=== PATIENT | male | born 1945 | race Caucasian/White ===

== ENCOUNTER 2020-04-26 12:13 | Inpatient (IN) ==
[2020-04-26 14:18] LABS: INR 1.3; Prothrombin Time 14.6 Seconds (9.4-12.1)
[2020-04-26 14:25] LABS: Alanine Aminotransferase 33 Units/L (7-52); Alkaline Phosphatase 42 Units/L (34-104); Aspartate Amino Transferase 44 Units/L (13-39); BUN/Creatinine Ratio 29 (6-26); Bilirubin,Direct 0.3 mg/dL (0.0-0.2); Bilirubin,Indirect 0.7 mg/dL (0.0-1.0); Blood Urea Nitrogen 42 mg/dL (8-23); C-Reactive Protein 289 mg/L (Less than 10); Calcium 9.1 mg/dL (8.6-10.3); Carbon Dioxide 25 mEq/L (23-29); Chloride 99 mEq/L (98-107); Glucose 114 mg/dL (70-105); Lactate Dehydrogenase 390 Units/L (140-271); Magnesium 2.4 mg/dL (1.6-2.6); Osmolality,Calculated 295 (280-300); Phosphorous 2.8 mg/dL (2.7-4.5); Potassium 3.1 mEq/L (3.5-5.1); Sodium 137 mEq/L (136-145); Troponin I < 0.03 ng/mL (< 0.04); eGFR For African Americans 58 (> 60); eGFR For Non-African Americans 48 (> 60)
[2020-04-26 14:39] LABS: Ferritin 498 ng/mL (20-250)
[2020-04-26] MEDS ORDERED: Azithromycin 500 MG in 0.9 % Sodium Chloride 250 ML IVPB ONE (14:40)
[2020-04-26] MEDS ORDERED: cefTRIAXone 1,000 MG in Water for inj. (sterile) 10 ML IVP ONE (14:40)
[2020-04-26 15:08] LABS: Hemoglobin 13.8 g/dL (12.9-16.9); Mean Platelet Volume 11.5 fL (9.4-12.4); Red Cell Distribution Width 14.9 % (11.5-14.5)
[2020-04-26 15:10] LABS: Hematocrit 41.7 % (37.5-50.1); Mean Corpuscular HGB Conc 33.1 g/dL (31.6-35.5); Mean Corpuscular Hemoglobin 29.9 pg (28.0-33.3); Mean Corpuscular Volume 90.3 fL (83.0-100.0); Red Blood Count 4.62 M/mcL (4.19-5.50); White Blood Count 10.9 K/mcL (4.3-11.1)
[2020-04-26 15:24] LABS: Adenovirus Not Detected (Not Detect); Coronavirus 229E Not Detected (Not Detect); Coronavirus HKU1 Not Detected (Not Detect); Coronavirus NL63 Not Detected (Not Detect); Coronavirus OC43 Not Detected (Not Detect); Human Metapneumovirus Not Detected (Not Detect); Human Rhinovirus/Enterovirus Not Detected (Not Detect); Influenza A Subtype 2009 H1 Not Detected (Not Detect); SARS-CoV-2 DETECTED (Not Detect)
[2020-04-26] MEDS ORDERED: Dexamethasone 4 MG/ML VIAL IVP STA (15:24)
[2020-04-26] MEDS ORDERED: 0.9 % Sodium Chloride 1,000 ML IVC ONE (15:24)
[2020-04-26 15:25] LABS: Bordetella Pertussis Not Detected (Not Detect); Chlamydophila pneumoniae Not Detected (Not Detect); Influenza B Not Detected (Not Detect); Mycoplasma pneumoniae Not Detected (Not Detect); Parainfluenza Virus 1 Not Detected (Not Detect); Parainfluenza Virus 2 Not Detected (Not Detect); Parainfluenza Virus 3 Not Detected (Not Detect); Parainfluenza Virus 4 Not Detected (Not Detect); Respiratory Syncytial Virus Not Detected (Not Detect)
[2020-04-26] MEDS ORDERED: *HR* Dextrose 50 % in Water (Vial) 50 ML VIAL IVP PRN (15:35)
[2020-04-26] MEDS ORDERED: Naloxone 0.4 MG/ML INJ IVP PRN (15:35)
[2020-04-26] MEDS ORDERED: D5% in Water 1,000 ML IVC PRN (15:35)
[2020-04-26] MEDS ORDERED: Dextrose Gel 15 GM/37.5 ML TUBE PO PRN ×2 (15:35)
[2020-04-26] MEDS ORDERED: Ondansetron 4 MG/2 ML VIAL IVP PRN (15:35)
[2020-04-26 15:38] LABS: Large Platelets Present (Not Present); Lymphocytes # 2.3 K/mcL (0.6-4.6); Monocytes # 1.5 K/mcL (0.0-1.3); Neutrophils # 7.1 K/mcL (1.6-8.9)
[2020-04-26] MEDS ORDERED: Potassium Chloride Elixir 20 MEQ/15 ML UDC PO ONE (16:09)
[2020-04-26] MEDS: *HR* Heparin 5,000 UNIT/ML VIAL SQ SCH (20:43)
[2020-04-27 02:04] LABS: Basophils % 0.2 %; Hemoglobin 12.2 g/dL (12.9-16.9); Immature Granulocytes % 1.4 % (0-4); Immature Platelets 23.4 % (1.1-6.1); Lymphocytes # 0.8 K/mcL (0.6-4.6); Lymphocytes % 8.4 %; Mean Corpuscular HGB Conc 33.9 g/dL (31.6-35.5); Mean Corpuscular Hemoglobin 30.6 pg (28.0-33.3); Mean Corpuscular Volume 90.2 fL (83.0-100.0); Monocytes # 0.8 K/mcL (0.0-1.3); Red Blood Count 3.99 M/mcL (4.19-5.50); Red Cell Distribution Width 14.7 % (11.5-14.5); White Blood Count 9.8 K/mcL (4.3-11.1)
[2020-04-27 02:09] LABS: Platelet Count 56 K/mcL (140-400)
[2020-04-27 02:16] LABS: D-Dimer 1424 ng/mLFEU (0-500); Fibrinogen 740 mg/dL (169-393)
[2020-04-27 02:27] LABS: Alanine Aminotransferase 33 Units/L (7-52); Albumin 3.5 g/dL (3.5-5.7); Albumin/Globulin Ratio 1.1 (1.1-2.2); Alkaline Phosphatase 36 Units/L (34-104); Aspartate Amino Transferase 41 Units/L (13-39); BUN/Creatinine Ratio 38 (6-26); Bilirubin,Total 0.7 mg/dL (0.3-1.0); Blood Urea Nitrogen 44 mg/dL (8-23); Calcium 8.3 mg/dL (8.6-10.3); Carbon Dioxide 21 mEq/L (23-29); Chloride 104 mEq/L (98-107); Globulin 3.2 g/dL (2.4-3.5); Glucose 160 mg/dL (70-105); Magnesium 2.4 mg/dL (1.6-2.6); Osmolality,Calculated 297 (280-300); Phosphorous 3.4 mg/dL (2.7-4.5); Potassium 3.6 mEq/L (3.5-5.1); Sodium 136 mEq/L (136-145); Total Protein 6.7 g/dL (6.4-8.9); eGFR For African Americans > 60 (> 60); eGFR For Non-African Americans > 60 (> 60)
[2020-04-27] MEDS ORDERED: 0.9 % Sodium Chloride 250 ML IV ONE (04:24)
[2020-04-27] MEDS: *HR* Heparin 5,000 UNIT/ML VIAL SQ SCH ×2 (05:20→17:46)
[2020-04-27] MEDS ORDERED: Azithromycin 500 MG in 0.9 % Sodium Chloride 250 ML IVPB SCH (08:00)
[2020-04-27] MEDS ORDERED: cefTRIAXone 2,000 MG in 0.9 % Sodium Chloride Mini Bag 100 ML IVPB SCH (08:00)
[2020-04-27] MEDS: Furosemide 40 MG/4 ML VIAL IVP ONE (08:51)
[2020-04-27] MEDS: Piperacillin/Tazobactam 3.375 GM in 0.9 % Sodium Chloride Mini Bag 100 ML IVPB SCH ×2 (08:51→16:09)
[2020-04-27] MEDS: Dexamethasone Sodium Phos/PF 10 MG/ML VIAL IVP SCH (08:52)
[2020-04-27] MEDS: Cholecalciferol (D-3) 1,000 UNIT (25MCG) TABLET PO SCH (11:22)
[2020-04-27] MEDS: Ascorbic Acid 500 MG TABLET PO SCH (11:22)
[2020-04-27] MEDS: Aspirin Enteric Coated 81 MG Tablet PO SCH (11:22)
[2020-04-27] MEDS: Doxycycline 100 MG in 0.9 % Sodium Chloride Mini Bag 100 ML IVPB SCH (16:10)
[2020-04-27] MEDS ORDERED: Remdesivir 200 MG (Bolus) in 0.9 % Sodium Chloride 250 ML IVPB ONE (17:00)
[2020-04-27] MEDS: Acetaminophen 325 MG TABLET PO PRN (19:51)
[2020-04-27] MEDS ORDERED: 0.9 % Sodium Chloride 250 ML ONE (22:02)
[2020-04-28] MEDS: Piperacillin/Tazobactam 3.375 GM in 0.9 % Sodium Chloride Mini Bag 100 ML IVPB SCH ×4 (00:48→23:31)
[2020-04-28] MEDS: Doxycycline 100 MG in 0.9 % Sodium Chloride Mini Bag 100 ML IVPB SCH ×2 (03:15→15:44)
[2020-04-28] MEDS: *HR* Heparin 5,000 UNIT/ML VIAL SQ SCH ×2 (05:12→17:24)
[2020-04-28] MEDS: Acetaminophen 325 MG TABLET PO PRN ×2 (06:01→20:31)
[2020-04-28 07:12] LABS: Basophils % 0.3 %; Eosinophils % 0.1 %; Hematocrit 34.2 % (37.5-50.1); Hemoglobin 11.5 g/dL (12.9-16.9); Immature Granulocytes % 1.9 % (0-4); Immature Platelets 31.4 % (1.1-6.1); Lymphocytes # 0.6 K/mcL (0.6-4.6); Lymphocytes % 4.3 %; Mean Corpuscular HGB Conc 33.6 g/dL (31.6-35.5); Mean Corpuscular Hemoglobin 29.6 pg (28.0-33.3); Mean Corpuscular Volume 87.9 fL (83.0-100.0); Mean Platelet Volume 12.2 fL (9.4-12.4); Monocytes # 1.2 K/mcL (0.0-1.3); Monocytes % 8.7 %; Red Blood Count 3.89 M/mcL (4.19-5.50); Red Cell Distribution Width 14.6 % (11.5-14.5); Segmented Neutrophils % 84.7 %
[2020-04-28 07:16] LABS: Neutrophils # 11.9 K/mcL (1.6-8.9); Platelet Count 51 K/mcL (140-400)
[2020-04-28 07:30] LABS: Alanine Aminotransferase 43 Units/L (7-52); Albumin 3.4 g/dL (3.5-5.7); Alkaline Phosphatase 38 Units/L (34-104); Aspartate Amino Transferase 42 Units/L (13-39); BUN/Creatinine Ratio 45 (6-26); Bilirubin,Total 0.5 mg/dL (0.3-1.0); Blood Urea Nitrogen 54 mg/dL (8-23); Calcium 8.8 mg/dL (8.6-10.3); Carbon Dioxide 21 mEq/L (23-29); Chloride 105 mEq/L (98-107); Globulin 3.4 g/dL (2.4-3.5); Glucose 189 mg/dL (70-105); Osmolality,Calculated 302 (280-300); Potassium 3.4 mEq/L (3.5-5.1); Sodium 136 mEq/L (136-145); Total Protein 6.8 g/dL (6.4-8.9); eGFR For African Americans > 60 (> 60); eGFR For Non-African Americans 60 (> 60)
[2020-04-28] MEDS: Cholecalciferol (D-3) 1,000 UNIT (25MCG) TABLET PO SCH (08:09)
[2020-04-28] MEDS: Aspirin Enteric Coated 81 MG Tablet PO SCH (08:09)
[2020-04-28 08:10] LABS: INR 1.1; Prothrombin Time 12.9 Seconds (9.4-12.1)
[2020-04-28] MEDS: Dexamethasone Sodium Phos/PF 10 MG/ML VIAL IVP SCH (08:10)
[2020-04-28] MEDS: Ascorbic Acid 500 MG TABLET PO SCH (08:10)
[2020-04-28] MEDS ORDERED: Potassium Chloride Elixir 20 MEQ/15 ML UDC PO ONE (10:38)
[2020-04-28] MEDS ORDERED: Furosemide 40 MG/4 ML VIAL IVP ONE (10:38)
[2020-04-28] MEDS: Remdesivir 100 MG (x 4 Days) in 0.9 % Sodium Chloride 250 ML IVPB SCH (17:22)
[2020-04-28] MEDS ORDERED: Insulin DETEMIR 100 UNIT/ML X5UNITS SQ ONE (20:57)
[2020-04-28] MEDS: Pantoprazole 40 MG VIAL IVP SCH (21:38)
[2020-04-29] MEDS: Doxycycline 100 MG in 0.9 % Sodium Chloride Mini Bag 100 ML IVPB SCH (03:51)
[2020-04-29] MEDS: *HR* Heparin 5,000 UNIT/ML VIAL SQ SCH ×2 (05:07→17:55)
[2020-04-29] MEDS: Pantoprazole 40 MG VIAL IVP SCH (05:08)
[2020-04-29 06:21] LABS: Basophils % 0.3 %; Lymphocytes % 5.5 %; Red Cell Distribution Width 14.8 % (11.5-14.5)
[2020-04-29 06:22] LABS: Hematocrit 36.4 % (37.5-50.1); Hemoglobin 12.3 g/dL (12.9-16.9); Immature Granulocytes % 2.6 % (0-4); Immature Platelets 24.6 % (1.1-6.1); Lymphocytes # 0.6 K/mcL (0.6-4.6); Mean Corpuscular HGB Conc 33.8 g/dL (31.6-35.5); Mean Corpuscular Hemoglobin 29.8 pg (28.0-33.3); Mean Corpuscular Volume 88.1 fL (83.0-100.0); Monocytes # 0.7 K/mcL (0.0-1.3); Monocytes % 6.6 %; Red Blood Count 4.13 M/mcL (4.19-5.50); White Blood Count 11.1 K/mcL (4.3-11.1)
[2020-04-29 06:26] LABS: Neutrophils # 9.4 K/mcL (1.6-8.9)
[2020-04-29 06:31] LABS: Fibrinogen 478 mg/dL (169-393)
[2020-04-29 06:33] LABS: INR 1.2; Prothrombin Time 13.9 Seconds (9.4-12.1)
[2020-04-29 06:40] LABS: Alanine Aminotransferase 44 Units/L (7-52); Albumin 3.3 g/dL (3.5-5.7); Alkaline Phosphatase 39 Units/L (34-104); Aspartate Amino Transferase 33 Units/L (13-39); BUN/Creatinine Ratio 40 (6-26); Bilirubin,Total 0.6 mg/dL (0.3-1.0); Blood Urea Nitrogen 53 mg/dL (8-23); Calcium 9.1 mg/dL (8.6-10.3); Carbon Dioxide 24 mEq/L (23-29); Chloride 105 mEq/L (98-107); Globulin 3.4 g/dL (2.4-3.5); Glucose 135 mg/dL (70-105); Osmolality,Calculated 304 (280-300); Potassium 3.9 mEq/L (3.5-5.1); Sodium 139 mEq/L (136-145); Total Protein 6.7 g/dL (6.4-8.9); eGFR For African Americans > 60 (> 60); eGFR For Non-African Americans 53 (> 60)
[2020-04-29 06:55] LABS: D-Dimer 1710 ng/mLFEU (0-500)
[2020-04-29] MEDS: Ascorbic Acid 500 MG TABLET PO SCH (08:01)
[2020-04-29] MEDS: Aspirin Enteric Coated 81 MG Tablet PO SCH (08:01)
[2020-04-29] MEDS: Cholecalciferol (D-3) 1,000 UNIT (25MCG) TABLET PO SCH (08:01)
[2020-04-29] MEDS: Dexamethasone Sodium Phos/PF 10 MG/ML VIAL IVP SCH (08:01)
[2020-04-29] MEDS: Piperacillin/Tazobactam 3.375 GM in 0.9 % Sodium Chloride Mini Bag 100 ML IVPB SCH ×3 (08:02→23:29)
[2020-04-29] MEDS: Remdesivir 100 MG (x 4 Days) in 0.9 % Sodium Chloride 250 ML IVPB SCH (17:56)
[2020-04-29] MEDS: Doxycycline 100 MG CAPSULE PO SCH (20:13)
[2020-04-30 05:34] LABS: Hematocrit 39.8 % (37.5-50.1); Monocytes % 8.2 %
[2020-04-30 05:36] LABS: Basophils % 0.4 %; Hemoglobin 12.8 g/dL (12.9-16.9); Immature Granulocytes % 4.5 % (0-4); Immature Platelets 26.4 % (1.1-6.1); Lymphocytes # 0.7 K/mcL (0.6-4.6); Lymphocytes % 6.6 %; Mean Corpuscular HGB Conc 32.2 g/dL (31.6-35.5); Mean Corpuscular Hemoglobin 29.4 pg (28.0-33.3); Mean Corpuscular Volume 91.3 fL (83.0-100.0); Monocytes # 0.9 K/mcL (0.0-1.3); Neutrophils # 8.8 K/mcL (1.6-8.9); Red Blood Count 4.36 M/mcL (4.19-5.50); Red Cell Distribution Width 14.9 % (11.5-14.5); Segmented Neutrophils % 80.3 %
[2020-04-30] MEDS: *HR* Heparin 5,000 UNIT/ML VIAL SQ SCH ×2 (05:36→18:25)
[2020-04-30 05:38] LABS: Fibrinogen 525 mg/dL (169-393); INR 1.2; Prothrombin Time 14.1 Seconds (9.4-12.1)
[2020-04-30 05:40] LABS: D-Dimer 1418 ng/mLFEU (0-500)
[2020-04-30 05:48] LABS: Platelet Count 76 K/mcL (140-400)
[2020-04-30 05:49] LABS: Alanine Aminotransferase 48 Units/L (7-52); Albumin 3.5 g/dL (3.5-5.7); Alkaline Phosphatase 43 Units/L (34-104); Aspartate Amino Transferase 31 Units/L (13-39); BUN/Creatinine Ratio 38 (6-26); Bilirubin,Total 0.6 mg/dL (0.3-1.0); Blood Urea Nitrogen 41 mg/dL (8-23); Carbon Dioxide 21 mEq/L (23-29); Chloride 107 mEq/L (98-107); Globulin 3.5 g/dL (2.4-3.5); Glucose 152 mg/dL (70-105); Osmolality,Calculated 299 (280-300); Potassium 4.3 mEq/L (3.5-5.1); Sodium 138 mEq/L (136-145); eGFR For African Americans > 60 (> 60); eGFR For Non-African Americans > 60 (> 60)
[2020-04-30 05:53] LABS: Magnesium 2.2 mg/dL (1.6-2.6)
[2020-04-30 06:03] LABS: Thyroid Stimulating Hormone 0.678 mcIU/mL (0.340-5.600)
[2020-04-30] MEDS: Dexamethasone Sodium Phos/PF 10 MG/ML VIAL IVP SCH (08:55)
[2020-04-30] MEDS: Ascorbic Acid 500 MG TABLET PO SCH (08:56)
[2020-04-30] MEDS: Piperacillin/Tazobactam 3.375 GM in 0.9 % Sodium Chloride Mini Bag 100 ML IVPB SCH ×2 (08:56→16:48)
[2020-04-30] MEDS: Aspirin Enteric Coated 81 MG Tablet PO SCH (08:56)
[2020-04-30] MEDS: Cholecalciferol (D-3) 1,000 UNIT (25MCG) TABLET PO SCH (08:56)
[2020-04-30] MEDS: Doxycycline 100 MG CAPSULE PO SCH ×2 (08:56→20:03)
[2020-04-30] MEDS ORDERED: Furosemide 40 MG/4 ML VIAL IVP ONE (13:26)
[2020-04-30] MEDS: Remdesivir 100 MG (x 4 Days) in 0.9 % Sodium Chloride 250 ML IVPB SCH (16:50)
[2020-04-30] MEDS: Furosemide 40 MG/4 ML VIAL IVP ONE (16:51)
[2020-05-01] MEDS: Piperacillin/Tazobactam 3.375 GM in 0.9 % Sodium Chloride Mini Bag 100 ML IVPB SCH (03:19)
[2020-05-01 03:39] LABS: INR 1.3
[2020-05-01 03:44] LABS: Alanine Aminotransferase 52 Units/L (7-52); Albumin 3.2 g/dL (3.5-5.7); Albumin/Globulin Ratio 1.1 (1.1-2.2); Alkaline Phosphatase 44 Units/L (34-104); Aspartate Amino Transferase 31 Units/L (13-39); BUN/Creatinine Ratio 35 (6-26); Bilirubin,Total 0.5 mg/dL (0.3-1.0); Blood Urea Nitrogen 39 mg/dL (8-23); Calcium 8.5 mg/dL (8.6-10.3); Carbon Dioxide 21 mEq/L (23-29); Chloride 108 mEq/L (98-107); Glucose 164 mg/dL (70-105); Magnesium 2.2 mg/dL (1.6-2.6); Osmolality,Calculated 301 (280-300); Potassium 4.1 mEq/L (3.5-5.1); Sodium 139 mEq/L (136-145); Total Protein 6.2 g/dL (6.4-8.9); eGFR For African Americans > 60 (> 60); eGFR For Non-African Americans > 60 (> 60)
[2020-05-01] MEDS ORDERED: Piperacillin/Tazobactam 3.375 GM in 0.9 % Sodium Chloride Mini Bag 100 ML IVPB SCH (04:00)
[2020-05-01 05:14] LABS: Hematocrit 35.2 % (37.5-50.1); Hemoglobin 11.5 g/dL (12.9-16.9); Immature Platelets 14.3 % (1.1-6.1); Mean Corpuscular HGB Conc 32.7 g/dL (31.6-35.5); Mean Corpuscular Hemoglobin 29.1 pg (28.0-33.3); Mean Corpuscular Volume 89.1 fL (83.0-100.0); Mean Platelet Volume 11.8 fL (9.4-12.4); Platelet Count 148 K/mcL (140-400); Red Blood Count 3.95 M/mcL (4.19-5.50); Red Cell Distribution Width 14.6 % (11.5-14.5)
[2020-05-01 05:58] LABS: Lymphocytes # 1.4 K/mcL (0.6-4.6); Monocytes # 0.2 K/mcL (0.0-1.3); Neutrophils # 7.4 K/mcL (1.6-8.9)
[2020-05-01 05:59] LABS: Platelet Clumps Few (Not Present); Platelet Estimate Normal (Normal); Poikilocytosis 1+ (Not Present)
[2020-05-01] MEDS ORDERED: *HR* Enoxaparin 40 MG/0.4 ML SYRINGE SQ SCH (06:00)
[2020-05-01 06:58] VITALS: BP 110/69
[2020-05-01] MEDS: Doxycycline 100 MG CAPSULE PO SCH (09:41)
[2020-05-01] MEDS: Dexamethasone Sodium Phos/PF 10 MG/ML VIAL IVP SCH (09:41)
[2020-05-01] MEDS: Aspirin Enteric Coated 81 MG Tablet PO SCH (09:41)
[2020-05-01] MEDS: Cholecalciferol (D-3) 1,000 UNIT (25MCG) TABLET PO SCH (09:41)
[2020-05-01] MEDS: Ascorbic Acid 500 MG TABLET PO SCH (09:41)
[2020-05-02] MEDS ORDERED: Dexamethasone Sodium Phos/PF 10 MG/ML VIAL IVP SCH (09:00)
== END 2020-05-01 19:17 | disposition home or self-care (01) | DRG 177 ==
LOC: EMEROOARM 12:13 → 2NENU 12:13 → SUATTDRO 19:50 → 2NENU 19:51
PROVIDERS: ADMIT Internal Medicine; ATTEND Internal Medicine

== ENCOUNTER 2022-02-10 12:52 | Inpatient (IN) ==
[~2022-02-10 12:52] MED LIST: Heparin 1,000 UNITS/500 mL 0 ML ONE
[2022-02-10] MEDS ORDERED: Heparin 1,000 UNITS/500 mL 500 ML ONE (13:07)
[2022-02-10] MEDS ORDERED: Protamine Sulfate 50 MG/5 ML VIAL IVP ONE (13:14)
[2022-02-10] MEDS ORDERED: Heparin 1,000 UNITS/500 mL 1,500 ML ONE (13:14)
[2022-02-10] MEDS ORDERED: *HR* Propofol 200 MG/20 ML VIAL IVP ONE (13:17)
[2022-02-10] MEDS ORDERED: *HR* FentaNYL (PF) 100 MCG/2 ML VIAL ONE ×2 (13:17→17:50)
[2022-02-10] MEDS ORDERED: *HR* FentaNYL (PF) 100 MCG/2 ML VIAL IVP PRN (13:21)
[2022-02-10] MEDS ORDERED: CeFAZolin Syr 2,000MG/20 ML 2,000 MG/20 ML SYRINGE IVPB ONE (13:22)
[2022-02-10] MEDS ORDERED: Ondansetron 4 MG/2 ML VIAL ONE (13:30)
[2022-02-10] MEDS ORDERED: Ringers Solution, Lactated 1,000 ML IVC SCH (13:30)
[2022-02-10] MEDS ORDERED: *HR* Rocuronium Bromide 50 MG/5 ML VIAL ONE ×2 (13:30→14:49)
[2022-02-10] MEDS ORDERED: Sugammadex Sodium 200 MG/2 ML VIAL IV ONE ×2 (13:30→17:38)
[2022-02-10] MEDS ORDERED: Lidocaine -MPF 2% 5 ML VIAL ONE (13:30)
[2022-02-10] MEDS ORDERED: EPHEDrine 50 MG/ML VIAL ONE (14:22)
[2022-02-10] MEDS ORDERED: ceFAZolin 1,000 MG, Sodium Chloride IRRigation 1,000 ML IR ONE (14:40)
[2022-02-10] MEDS ORDERED: Ketamine HCL *QUVA* 50mg (1mL) SYRINGE ONE (14:42)
[2022-02-10] MEDS ORDERED: *HR* Heparin 5,000 UNIT/ML VIAL ONE ×2 (14:58→17:03)
[2022-02-10] MEDS ORDERED: Norepinephrine 4 MG/254 ML IV.SOLN IVC ONE (15:34)
[2022-02-10] MEDS ORDERED: *HR* HYDROcodone/Acet 5/325 mg TABLET PO PRN (20:21)
[2022-02-10] MEDS ORDERED: Naloxone 0.4 MG/ML INJ IVP PRN (20:21)
[2022-02-10] MEDS ORDERED: Ondansetron 4 MG/2 ML VIAL IVP PRN (20:21)
[2022-02-10] MEDS ORDERED: Acetaminophen 325 MG TABLET PO PRN (20:21)
[2022-02-10] MEDS ORDERED: *HR* Labetalol 20 MG/4 ML SYRINGE IVP PRN (20:21)
[2022-02-10] MEDS ORDERED: *HR* OxyCODONE Immed Rel 5 MG TABLET PO PRN (20:21)
[2022-02-11] MEDS: CeFAZolin 2 GM/120 ML BAG IVPB SCH ×3 (00:07→17:29)
[2022-02-11 06:23] LABS: Eosinophils % 0.3 %
[2022-02-11 06:24] LABS: Basophils % 0.6 %; Hematocrit 34.9 % (37.5-50.1); Hemoglobin 11.2 g/dL (12.9-16.9); Immature Granulocytes % 1.9 % (0-4); Immature Platelets 9.5 % (1.1-6.1); Lymphocytes # 1.1 K/mcL (0.6-4.6); Lymphocytes % 15.6 %; Mean Corpuscular HGB Conc 32.1 g/dL (31.6-35.5); Mean Corpuscular Hemoglobin 28.8 pg (28.0-33.3); Mean Corpuscular Volume 89.7 fL (83.0-100.0); Mean Platelet Volume 11.8 fL (9.4-12.4); Monocytes # 1.1 K/mcL (0.0-1.3); Monocytes % 16.5 %; Neutrophils # 4.5 K/mcL (1.6-8.9); Nucleated Red Blood Cells 0.7 /100 WBC (0); Red Blood Count 3.89 M/mcL (4.19-5.50); Red Cell Distribution Width 15.1 % (11.5-14.5); Segmented Neutrophils % 65.1 %; White Blood Count 6.9 K/mcL (4.3-11.1)
[2022-02-11 06:46] LABS: Calcium 8.9 mg/dL (8.6-10.3); Potassium 3.7 mEq/L (3.5-5.1)
[2022-02-11] MEDS ORDERED: 0.9 % Sodium Chloride 500 ML IV ONE (08:19)
[2022-02-11] MEDS: Cholecalciferol (D-3) 1,000 UNIT (25MCG) TABLET PO SCH (08:20)
[2022-02-11] MEDS: lisinopriL 20 MG TABLET PO SCH (08:20)
[2022-02-11] MEDS: Vitamin B Complex/Vit C/Vit E 1 EACH TABLET PO SCH (08:20)
[2022-02-11] MEDS: Magnesium Oxide 400 MG TABLET PO SCH (08:21)
[2022-02-11] MEDS: carvediloL 6.25 MG TABLET PO SCH ×2 (08:21→17:38)
[2022-02-11] MEDS: Ascorbic Acid 500 MG TABLET PO SCH (08:21)
[2022-02-11] MEDS: Multivit/Ca/Min/Fe/FA 1 TAB TABLET PO SCH (08:21)
[2022-02-11] MEDS: hydroCHLOROthiazide 25 MG TABLET PO SCH (08:22)
[2022-02-11] MEDS: Vitamin E 200 UNIT (90MG) CAPSULE PO SCH (08:26)
[2022-02-12 03:10] VITALS: TEMP 97.9
[2022-02-12] MEDS: Vitamin E 200 UNIT (90MG) CAPSULE PO SCH (08:22)
[2022-02-12] MEDS: Cholecalciferol (D-3) 1,000 UNIT (25MCG) TABLET PO SCH (08:23)
[2022-02-12] MEDS: Ascorbic Acid 500 MG TABLET PO SCH (08:23)
[2022-02-12] MEDS: Magnesium Oxide 400 MG TABLET PO SCH (08:23)
[2022-02-12] MEDS: Vitamin B Complex/Vit C/Vit E 1 EACH TABLET PO SCH (08:23)
[2022-02-12] MEDS: Multivit/Ca/Min/Fe/FA 1 TAB TABLET PO SCH (08:23)
[2022-02-12 08:37] VITALS: O2SAT 96
[2022-02-12 10:52] VITALS: BP 97/53; PULSE 58
[2022-02-12] MEDS: carvediloL 6.25 MG TABLET PO SCH (10:52)
[2022-02-12] MEDS: lisinopriL 20 MG TABLET PO SCH (10:52)
[2022-02-12] MEDS: hydroCHLOROthiazide 25 MG TABLET PO SCH (10:52)
== END 2022-02-12 10:34 | disposition home or self-care (01) | DRG 39 ==
LOC: SAMDAY 12:52 → 2NNU 20:14
PROVIDERS: ADMIT Surgery Vascular Surgery; ATTEND Surgery Vascular Surgery